=== PATIENT | female | born 1960 | race Caucasian/White ===

== ENCOUNTER 2017-01-29 08:41 | Day surgery (SDC) | payer OTHER ==
[2017-01-29 09:45] VITALS: TEMP 97
[2017-01-29] MEDS ORDERED: Lactated Ringer's 500 ML IV ONE ×2 (10:38)
[2017-01-29] MEDS ORDERED: Lidocaine Hydrochloride 5 ML INJ ONE (10:42)
[2017-01-29] MEDS ORDERED: Propofol 10 mg/ml Inj (20 ML) ONE (10:42)
[2017-01-29 11:46] VITALS: O2SAT 100
[2017-01-29 12:13] VITALS: BP 135/92; PULSE 77; RESP 14
== END 2017-01-29 12:48 | disposition home or self-care (01) ==
LOC: C.ENDO 08:41
PROVIDERS: ATTEND Internal Medicine Gastroenterology
DX: K29.50 Unspecified chronic gastritis without bleeding (principal); K44.9 Diaphragmatic hernia without obstruction or gangrene; D12.5 Benign neoplasm of sigmoid colon; K57.30 Diverticulosis of large intestine without perforation or abscess without bleeding; K64.8 Other hemorrhoids
CPT/HCPCS: 43239; 45380; 45385; 87045; 87177; 87209; 87230; 88305; 88313; 88342; J2001; J2704; J7120